=== PATIENT | female | born 2000 | race Two or more races ===

== ENCOUNTER 2024-10-04 07:21 | Emergency (ER) | payer OTHER ==
[~2024-10-04] VITALS: Ht 172.7 cm; Wt 101.6 kg
[2024-10-04 07:44] VITALS: TEMP 97.7
--- NOTE | 2024-10-04 07:47 | ED.PDOC ---
GI ASSESSMENT HPI Comments 24Y F presents to ED for chief complaint abd pain x1.5hrs with nausea, vomiting, and dizziness. Pt described abd pain as burning and is mainly located at epigastric area. Pt denies fever, chills, and diarrhea. Pt took Ibuprofen after abd pain started. Pt has never experienced this type of pain before. LMP last month. Pt denies alcohol, tobacco, and illicit drug use. No known allergies. Chief Complaint: Abdominal Pain Time Seen by MD: 07:28 Reviewed Notes: Medications, Allergies Information Source: Patient Mode of Arrival: Ambulatory Timing: Hours Duration: Since onset Quality: Burning Vomitus: Watery Stool: Brown Severity: Mild Recent: None Recent Hx of: None Pain Location: Epigastric Modifying Factors: Nothing Associated sign and symptoms: Nausea, Vomiting, Abdominal Pain Past Medical History PAST MEDICAL HISTORY: Denies Surgical History: Denies all surgeries CORPORATE SPECIALIST History: Denies all CORPORATE SPECIALIST Hx Family History Family History: Unknown Social History Smoker: Non-Smoker Alcohol: Denies ETOH Use Drugs: Denies Drug Use Lives In: Home Constitutional: denies: chills, diaphoresis, fatigue, fever, malaise, sweats, weakness, others EENTM: denies: blurred vision, double vision, ear bleeding, ear discharge, ear drainage, ear pain, ear ringing, eye pain, eye redness, hearing loss, mouth pain, mouth swelling, nasal discharge, nose bleeding, nose congestion, nose pain, photophobia, tearing, throat pain, throat swelling, voice changes, others Respiratory: denies: cough, hemoptysis, orthopnea, SOB at rest, shortness of breath, SOB with excertion, stridor, wheezing, others Cardiovascular: denies: chest pain, dizzy spells, diaphoresis, Dyspnea on exertion, edema, irregular heart beat, left arm pain, lightheadedness, palpitations, PND, syncope, others Gastrointestinal: reports: abdominal pain, nausea, vomiting; denies: abdomen distended, blood streaked bowels, constipated, diarrhea, dysphagia, difficulty swallowing, hematemesis, melena, poor appetite, poor fluid intake, rectal bleeding, rectal pain, others Genitourinary: denies: abnormal vagina bleeding, burning, dyspareunia, dysuria, flank pain, frequency, hematuria, incontinence, pain, , vagina discharge, urgency, others Neurological: reports: dizziness; denies: fainting, headache, left sided numbness, left sided weakness, numbness, paresthesia, pre-existing deficit, right sided numbness, right sided weakness, seizure, speech problems, tingling, tremors, weakness, others Musculoskeletal: denies: back pain, gout, joint pain, joint swelling, muscle pain, muscle stiffness, neck pain, others Integumetry: denies: bruises, change in color, change in hair/nails, dryness, laceration, lesions, lumps, rash, wounds, others Allergic/Immunocompromised: denies: Difficulty Healing, Frequent Infections, Hives, Itching, others Hematologic/Lymphatic: denies: anemia, blood clots, easy bleeding, easy bruising, swollen glands, others Endocrine: denies: excessive hunger, excessive sweating, excessive thirst, excessive urination, flushing, intolerance to cold, intolerance to heat, unexplained weight gain, unexplained weight loss, others Psychiatric: denies: anxiety, bipolar disorder, depression, hopeless, panic disorder, schizophrenia, sleepless, suicidal, others All Other Systems: Reviewed and Negative Physical Exam General Appearance: Moderate Distress, Normal HEENT: Normal ENT Inspection, Pharynx Normal, TMs Normal Neck: Full Range of Motion, Non-Tender, Normal, Normal Inspection Respiratory: Chest Non-Tender, Lungs Clear, No Accessory Muscle Use, No Respiratory Distress, Normal Breath Sounds Cardiovascular: No Edema, No JVD, No Murmur, No Gallop, Normal Peripheral Pulses, Regular Rate/Rhythm Breast Exam: Deferred Gastrointestinal: Epigastric, Tenderness Genitalia: Deferred Pelvic: Deferred Rectal: Deferred Extremities: No calf tenderness, Normal capillary refill, Normal inspection, Normal range of motion, Non-tender, No pedal edema Musculoskeletal : Apperance: Normal Neurologic: Alert, oven roaster II-XII nml as Tested, No Motor Deficits, Normal Affect, Normal Mood, No Sensory Deficits Cerebellar Function: Normal Reflexes: Normal Skin: Dry, Normal Color, Warm Lymphatic: No Adenopathy Was a procedure done? Was a procedure done?: No GI differential Dx Differential Diagnosis: Cholecystitis, Esophagitis, Gastritis/PUD Other Differential Diagnosis Pancreatitis X-Ray, Labs, Meds, VS Vital Signs Date Time Temp Pulse Resp B/P (MAP) Pulse Ox O2 Delivery O2 Flow Rate FiO2 10/04/24 10:03 86 17 107/71 (83) 98 10/04/24 07:49 16 97 Room Air* 0 21 10/04/24 07:44 97.7 90 18 120/74 (89) 99 97.7 10/04/24 07:44 90 18 99 Room Air 10/04/24 07:40 97.7 90 18 120/74 (89) 99 97.7 10/04/24 07:34 98.2 83 18 117/74 (88) 98 Lab Test 10/04/24 07:33 Range/Units White Blood Count 8.6 4.4-10.8 10^3/uL Red Blood Count 5.53 H 4.0-5.20 10^6/uL Hemoglobin 12.9 12.2-16.2 g/dL Hematocrit 41.0 36.0-46.0 % Mean Corpuscular Volume 74.2 L 80.0-100.0 fL Mean Corpuscular Hemoglobin 23.4 L 28.0-32.0 pg Mean Corpuscular Hemoglobin Concent 31.5 L 32.0-36.0 g/dL Red Cell Distribution Width 15.2 H 11.8-14.3 % Platelet Count 370 140-450 10^3/uL Mean Platelet Volume 7.3 6.9-10.8 fL Neutrophils (%) (Auto) 59.6 37.0-80.0 % Lymphocytes (%) (Auto) 27.8 10.0-50.0 % Monocytes (%) (Auto) 6.6 0.0-12.0 % Eosinophils (%) (Auto) 5.3 0.0-7.0 % Basophils (%) (Auto) 0.7 0.0-2.0 % Neutrophils # (Auto) 5.1 1.6-8.6 10 ^3/uL Lymphocytes # (Auto) 2.4 0.4-5.4 10 ^3/uL Monocytes # (Auto) 0.6 0-1.3 10 ^3/uL Eosinophils # (Auto) 0.5 0-0.8 10 ^3/uL Basophils # (Auto) 0.1 0-0.2 10 ^3/uL Nucleated Red Blood Cells 0.1 % Sodium Level 139 136-145 mmol/L Potassium Level 3.8 3.5-5.1 mmol/L Chloride Level 106 98-107 mmol/L Carbon Dioxide Level 24 20-31 mmol/L Anion Gap 9 5-15 Blood Urea Nitrogen 7 L 9-23 mg/dL Creatinine 0.91 0.550-1.02 mg/dL Glomerular Filtration Rate Calc 89 >90 mL/min BUN/Creatinine Ratio 7.7 L 10.0-20.0 Serum Glucose 110 H 74-106 mg/dL Calcium Level 9.5 8.7-10.4 mg/dL Total Bilirubin 0.3 0.2-1.0 mg/dL Aspartate Amino Transferase (AST) 11 L 13-40 U/L Alanine Aminotransferase (ALT) 23 7-40 U/L Alkaline Phosphatase 88 46-116 U/L Total Protein 7.8 5.7-8.2 g/dL Albumin 4.5 3.2-4.8 g/dL Lipase 40 12-53 U/L Beta HCG, Quantitative 0.5 L 1.5-4.2 mIU/mL Current Medications Medications (Trade) Dose Ordered Sig/Dinora Route Start Time Stop Time Status Last Admin Ondansetron HCl (Zofran Po) 4 mg ONCE ONCE PO 10/04/24 07:45 10/04/24 07:46 DC 10/04/24 07:49 Al Hydrox/Mg Hydrox/Simethicone (Maalox Plus) 30 ml ONCE ONCE PO 10/04/24 07:45 10/04/24 07:46 DC 10/04/24 07:49 [place] [id number] Ph: [phone] DIAGNOSTIC IMAGING Diagnostic Imaging Report : [id number] Signed PATIENT: NAREN CHA ACCT: [id number] UNIT: [id number] : 2000 LOC: ER ROOM / BED: / AGE / SEX: 24 / F ADM STATUS: REG ER SERVICE [id number] ORDERING PHYSICIAN: BASILIO ROBLES MD PROCEDURE(s): GBUS - GALLBLADDER REASON: ro bruce ORDER NUMBER(s): [id number], ACCESSION NUMBER(s): [id number] Procedure: US GALLBLADDER 10/04/2024 08:44 AM Indication: ro bruce. Comparison: None Technique: Grayscale and color images of the right upper quadrant were obtained. FINDINGS: ASCITES: None. LIVER: Liver measures 16 cm craniocaudal. Liver parenchyma is diffusely echogenic. No focal lesion is identified. No intrahepatic ductal dilatation. Normal directional flow is seen in the portal vein. GALLBLADDER: Few subcentimeter gallstones noted. No gallbladder wall edema or pericholecystic fluid. Sonographic Lora's sign is negative. COMMON BILE DUCT: 0.4 cm in caliber, within normal limits. PANCREAS: Visualized portions are unremarkable. RIGHT KIDNEY: Normal in size , 10.6 cm in length without hydronephrosis. No focal lesions identified. AORTA, IVC: Visualized portions are unremarkable. OTHER: None. IMPRESSION: 1. Cholelithiasis with no evidence of cholecystitis. 2. Hepatic steatosis. ATED BY: LORETA GARDUNO MD DICTATED DATE/TIME: 10/04/24 1005 SIGNED BY: LORETA GARDUNO MD SIGNED DATE/TIME: 10/04/24 1005 CC: Time of 1ST Reevaluation: 07:58 Reevaluation 1ST: Unchanged Time of 2ND Reevaluation: 08:50 (Pt states pain has resolved.) Reevaluation 2ND: Improved Patient Education/Counseling: Diagnosis, Treatment Family Education/Counseling: No Family Present Departure 1 Departure Time of Disposition: 10:12 Impression: Primary Impression: Cholelithiasis Qualified Codes: K80.20 - Calculus of gallbladder without cholecystitis without obstruction Additional Impression: Gastritis Qualified Codes: K29.00 - Acute gastritis without bleeding Disposition: HOME / SELF CARE / HOMELESS Condition: Stable Additional Instructions: Follow up with the primary care physician to obtain an outpatient surgery referral for elective removal of your gallbladder. I have prescribed nausea medicine. Additionally stay away from greasy foods as that will make your pain worse. Return to the ER if symptoms worsen or persist. e-Prescriptions Ibuprofen (Ibuprofen) 600 Mg Tab 1 TAB PO TID PRN, #30 TAB Prov: BASILIO ROBLES MD 10/04/24 Ondansetron Odt 4MG Tab (ZOFRAN PO) 4 Mg Tb 4 MG PO Q6HPRN PRN, #10 TAB ODT TAB-DISSOLVE IN MOUTH, THEN SWALLOW Prov: BASILIO ROBLES MD 10/04/24 Discharged With: Self Comments PATIENT: NAREN CHA ACCT: [id number] UNIT: [id number] : 2000 LOC: ER ROOM / BED: / AGE / SEX: 24 / F ADM STATUS: REG ER SERVICE [id number] ORDERING PHYSICIAN: BASILIO ROBLES MD PROCEDURE(s): GBUS - GALLBLADDER REASON: ro bruce ORDER NUMBER(s): [id number], ACCESSION NUMBER(s): [id number] Procedure: US GALLBLADDER 10/04/2024 08:44 AM Indication: ro bruce. Comparison: None Technique: Grayscale and color images of the right upper quadrant were obtained. FINDINGS: ASCITES: None. LIVER: Liver measures 16 cm craniocaudal. Liver parenchyma is diffusely echogenic. No focal lesion is identified. No intrahepatic ductal dilatation. Normal directional flow is seen in the portal vein. GALLBLADDER: Few subcentimeter gallstones noted. No gallbladder wall edema or pericholecystic fluid. Sonographic Lora's sign is negative. COMMON BILE DUCT: 0.4 cm in caliber, within normal limits. PANCREAS: Visualized portions are unremarkable. RIGHT KIDNEY: Normal in size , 10.6 cm in length without hydronephrosis. No focal lesions identified. AORTA, IVC: Visualized portions are unremarkable. OTHER: None. IMPRESSION: 1. Cholelithiasis with no evidence of cholecystitis. 2. Hepatic steatosis. Critical Care Note Critical Care Time?: No Stability Stability form required: No Heart Score Heart Score: Heart Score Response (Comments) Value History N/A 0 EKG N/A 0 Age N/A 0 Risk Factors N/A 0 Troponin N/A 0 Total 0 I personally scribed for BASILIO ROBLES MD ([email or web address]) on 10/04/24 at 07:47. Electronically submitted by Shira Cheney ([email or web address]). I personally scribed for BASILIO ROBLES MD ([email or web address]) on 10/04/24 at 09:35. Electronically submitted by Shira Cheney ([email or web address]). I personally scribed for BASILIO ROBLES MD ([email or web address]) on 10/04/24 at 10:13. Electronically submitted by Shira Cheney ([email or web address]). BASILIO ROBLES MD Oct 04, 2024 07:47
[2024-10-04 07:49] VITALS: RESP 16; O2SAT 97
[2024-10-04] MEDS: ONDANSETRON ODT 4 MG TAB PO ONE (07:49)
[2024-10-04] MEDS: MAALOX PLUS or MAALOX 30 ML PO ONE (07:49)
[2024-10-04 08:00] LABS: Basophils # (auto) 0.1 10 ^3/uL (0-0.2); Basophils % (auto) 0.7 % (0.0-2.0); Eosinophils # (auto) 0.5 10 ^3/uL (0-0.8); Eosinophils % (auto) 5.3 % (0.0-7.0); Hemoglobin 12.9 g/dL (12.2-16.2); Lymphocytes # (auto) 2.4 10 ^3/uL (0.4-5.4); Lymphocytes % (auto) 27.8 % (10.0-50.0); Mean Corpuscular Hemoglobin 23.4 pg (28.0-32.0); Mean Corpuscular Hgb Conc. 31.5 g/dL (32.0-36.0); Mean Corpuscular Volume 74.2 fL (80.0-100.0); Monocytes # (auto) 0.6 10 ^3/uL (0-1.3); Monocytes % (auto) 6.6 % (0.0-12.0); Neutrophils # (auto) 5.1 10 ^3/uL (1.6-8.6); Neutrophils % (auto) 59.6 % (37.0-80.0); Nucleated Red Blood Cells % 0.1 %; Platelet Count (auto) 370 10^3/uL (140-450); Red Blood Cells 5.53 10^6/uL (4.0-5.20); Red Cell Distribution Width 15.2 % (11.8-14.3); White Blood Cell 8.6 10^3/uL (4.4-10.8)
[2024-10-04 08:18] LABS: Alanine Aminotransferase 23 U/L (7-40); Albumin 4.5 g/dL (3.2-4.8); Alkaline Phosphatase 88 U/L (46-116); Anion Gap 9 (5-15); Aspartate Aminotransferase 11 U/L (13-40); BUN/Creatinine Ratio 7.7 (10.0-20.0); Bilirubin, Total 0.3 mg/dL (0.2-1.0); Blood Urea Nitrogen 7 mg/dL (9-23); Calcium 9.5 mg/dL (8.7-10.4); Carbon Dioxide 24 mmol/L (20-31); Chloride 106 mmol/L (98-107); Glucose 110 mg/dL (74-106); Potassium 3.8 mmol/L (3.5-5.1); Sodium 139 mmol/L (136-145); Total Protein 7.8 g/dL (5.7-8.2)
[2024-10-04 08:57] LABS: Lipase 40 U/L (12-53)
[2024-10-04 10:03] VITALS: BP 107/71; PULSE 86; RESP 17; O2SAT 98
--- NOTE | 2024-10-04 10:07 | DVH ---
Procedure: US GALLBLADDER 10/04/2024 08:44 AM Indication: ro bruce. Comparison: None Technique: Grayscale and color images of the right upper quadrant were obtained. FINDINGS: ASCITES: None. LIVER: Liver measures 16 cm craniocaudal. Liver parenchyma is diffusely echogenic. No focal lesion is identified. No intrahepatic ductal dilatation. Normal directional flow is seen in the portal vein. GALLBLADDER: Few subcentimeter gallstones noted. No gallbladder wall edema or pericholecystic fluid. Sonographic Lora's sign is negative. COMMON BILE DUCT: 0.4 cm in caliber, within normal limits. PANCREAS: Visualized portions are unremarkable. RIGHT KIDNEY: Normal in size , 10.6 cm in length without hydronephrosis. No focal lesions identified. AORTA, IVC: Visualized portions are unremarkable. OTHER: None. IMPRESSION: 1. Cholelithiasis with no evidence of cholecystitis. 2. Hepatic steatosis.
[2024-10-04] MEDS ORDERED: ZOFR4T PO (10:17)
[2024-10-04] MEDS ORDERED: IBUP-1454 PO (10:17)
== END 2024-10-04 10:36 | disposition home or self-care (01) ==
LOC: ER 07:21
DX: K29.00 Acute gastritis without bleeding (principal); R10.2 Pelvic and perineal pain; K80.20 Calculus of gallbladder without cholecystitis without obstruction
CPT/HCPCS: 36415; 76705; 80053; 83690; 84702; 85025; 99284; Q0162

== ENCOUNTER 2025-11-07 17:56 | Inpatient (IN) | payer MEDICAID, OTHER ==
[~2025-11-07] VITALS: Ht 172.7 cm; Wt 102.5 kg
[~2025-11-07 17:56] MED LIST: IBUP-1454 PO; ZOFR4T PO
[2025-11-07 19:30] VITALS: PULSE 87; RESP 19; O2SAT 98
--- NOTE | 2025-11-07 19:48 | DVH ---
CLINICAL INDICATION: injury low back pain TECHNIQUE: 3 radiographic views of the lumbar spine were obtained. COMPARISON: N3one FINDINGS/IMPRESSION: Levoscoliosis of the lumbar spine is noted. This may be positional there are no prior studies for comparison. There are no compressed vertebra. No spondylolisthesis. There is straightening of the normal lumbar lordotic curve.
--- NOTE | 2025-11-07 20:02 | ED.PDOC ---
Back pain HPI HPI Comments 25 y.o female presents to the ED for a chief complaint of lower back pain s/p lifting heavy object at work today. Patient reports pain worsens with ambulation and is described as sharp. She denies any numbness, tingling sensation, nausea, vomiting or fall injuries. Chief Complaint: Back Pain Time Seen by MD: 20:01 Reviewed Notes: Nurses Notes, Medications, Allergies Allergies: Coded Allergies: NO KNOWN ALLERGIES (Unverified , 11/07/25) Home Meds Active Scripts Ibuprofen (Ibuprofen) 600 Mg Tab, 1 TAB PO TID PRN, #30 TAB Prov:BASILIO ROBLES MD 10/04/24 Ondansetron Odt 4MG Tab (ZOFRAN PO) 4 Mg Tb, 4 MG PO Q6HPRN PRN, #10 TAB ODT TAB-DISSOLVE IN MOUTH, THEN SWALLOW Prov:BASILIO ROBLES MD 10/04/24 Mode of Arrival: Ambulatory Past Medical History PAST MEDICAL HISTORY: Denies Surgical History: Denies all surgeries GREASE REMOVER History: Denies all GREASE REMOVER Hx Family History Family History: Unknown Social History Smoker: Non-Smoker Alcohol: Denies ETOH Use Drugs: Denies Drug Use Lives In: Home Constitutional: denies: chills, diaphoresis, fatigue, fever, malaise, sweats, w eakness, others EENTM: denies: blurred vision, double vision, ear bleeding, ear discharge, ear drainage, ear pain, ear ringing, eye pain, eye redness, hearing loss, mouth pain, mouth swelling, nasal discharge, nose bleeding, nose congestion, nose pain, photophobia, tearing, throat pain, throat swelling, voice changes, others Respiratory: denies: cough, hemoptysis, orthopnea, SOB at rest, shortness of breath, SOB with excertion, stridor, wheezing, others Cardiovascular: denies: chest pain, dizzy spells, diaphoresis, Dyspnea on exertion, edema, irregular heart beat, left arm pain, lightheadedness, palpitations, PND, syncope, others Gastrointestinal: denies: abdomen distended, abdominal pain, blood streaked bowels, constipated, diarrhea, dysphagia, difficulty swallowing, hematemesis, melena, nausea, poor appetite, poor fluid intake, rectal bleeding, rectal pain, vomiting, others Genitourinary: denies: abnormal vagina bleeding, burning, dyspareunia, dysuria, flank pain, frequency, hematuria, incontinence, pain, , vagina di scharge, urgency, others Neurological: denies: dizziness, fainting, headache, left sided numbness, left sided weakness, numbness, paresthesia, pre-existing deficit, right sided numbness, right sided weakness, seizure, speech problems, tingling, tremors, weakness, others Musculoskeletal: reports: back pain; denies: gout, joint pain, joint swelling, muscle pain, muscle stiffness, neck pain, others Integumetry: denies: bruises, change in color, change in hair/nails, dryness, laceration, lesions, lumps, rash, wounds, others Allergic/Immunocompromised: denies: Difficulty Healing, Frequent Infections, Hives, Itching, others Hematologic/Lymphatic: denies: anemia, blood clots, easy bleeding, easy bruising, swollen glands, others Endocrine: denies: excessive hunger, excessive sweating, excessive thirst, excessive urination, flushing, intolerance to cold, intolerance to heat, unexplained weight gain, unexplained weight loss, others Psychiatric: denies: anxiety, bipolar disorder, depression, hopeless, panic disorder, schizophrenia, sleepless, suicidal, others All Other Systems: Reviewed and Negative Physical Exam General Appearance: No Apparent Distress, Normal HEENT: Pharynx Normal Neck: Full Range of Motion, Non-Tender Respiratory: Lungs Clear, No Respiratory Distress, Normal Breath Sounds Cardiovascular: No Edema, No JVD, No Murmur, No Gallop, Normal Peripheral Pulses, Regular Rate/Rhythm Breast Exam: Deferred Gastrointestinal: No Organomegaly, Non Tender, No Pulsatile Mass, Normal Bowel Sounds, Soft Genitalia: Deferred Pelvic: Deferred Rectal: Deferred Extremities: Normal capillary refill, Normal range of motion, Non-tender, No pedal edema Musculoskeletal : Location: Bilateral (Moderate tenderness palpated over lower back musculature and L1-2 l spine. No noted crepitus or step-offs along cervical thoracic and lumbar spine. Strength sensory and motion intact. Negative straight leg raise bilateral. Positive pedal pulses) Apperance: Normal Neurologic: Alert, No Motor Deficits, Normal Affect, Normal Mood, No Sensory Deficits Cerebellar Function: Normal Reflexes: NOT DONE Skin: Dry, Normal Color, Warm Lymphatic: No Adenopathy Was a procedure done? Was a procedure done?: No Back Pain Differential Dx Differential Diagnosis: DJD, Fracture, Musculoskeletal Pain, Strain X-Ray, Labs, Meds, VS Vital Signs Date Time Temp Pulse Resp B/P (MAP) Pulse Ox O2 Delivery O2 Flow Rate FiO2 11/07/25 22:00 70 19 87/46 (60) 94 11/07/25 21:00 84 19 120/80 (93) 98 11/07/25 20:00 89 19 110/68 (82) 98 11/07/25 19:30 87 19 98 Room Air* 0 21 11/07/25 19:30 97.9 87 19 114/43 (66) 98 97.9 11/07/25 18:05 98.7 120 18 111/81 98 98.7 Lab Test 11/07/25 23:09 Range/Units White Blood Count 5.7 4.4-10.8 10^3/uL Red Blood Count 5.14 4.0-5.20 10^6/uL Hemoglobin 11.6 L 12.2-16.2 g/dL Hematocrit 36.6 36.0-46.0 % Mean Corpuscular Volume 71.2 L 80.0-100.0 fL Mean Corpuscular Hemoglobin 22.6 L 28.0-32.0 pg Mean Corpuscular Hemoglobin Concent 31.8 L 32.0-36.0 g/dL Red Cell Distribution Width 15.5 H 11.8-14.3 % Platelet Count 395 140-450 10^3/uL Mean Platelet Volume 7.5 6.9-10.8 fL Neutrophils (%) (Auto) 82.6 H 37.0-80.0 % Lymphocytes (%) (Auto) 14.4 10.0-50.0 % Monocytes (%) (Auto) 1.6 0.0-12.0 % Eosinophils (%) (Auto) 0.8 0.0-7.0 % Basophils (%) (Auto) 0.6 0.0-2.0 % Neutrophils # (Auto) 4.7 1.6-8.6 10 ^3/uL Lymphocytes # (Auto) 0.8 0.4-5.4 10 ^3/uL Monocytes # (Auto) 0.1 0-1.3 10 ^3/uL Eosinophils # (Auto) 0 0-0.8 10 ^3/uL Basophils # (Auto) 0 0-0.2 10 ^3/uL Nucleated Red Blood Cells 0.0 % Sodium Level 141 136-145 mmol/L Potassium Level 3.9 3.5-5.1 mmol/L Chloride Level 106 98-107 mmol/L Carbon Dioxide Level 26 20-31 mmol/L Anion Gap 9 5-15 Blood Urea Nitrogen 8 L 9-23 mg/dL Creatinine 0.63 0.550-1.02 mg/dL Glomerular Filtration Rate Calc 125 >90 mL/min BUN/Creatinine Ratio 12.7 10.0-20.0 Serum Glucose 110 H 74-106 mg/dL Calcium Level 8.9 8.7-10.4 mg/dL Total Bilirubin 0.3 0.2-1.0 mg/dL Aspartate Amino Transferase (AST) 26 13-40 U/L Alanine Aminotransferase (ALT) 32 7-40 U/L Alkaline Phosphatase 82 46-116 U/L Total Protein 7.4 5.7-8.2 g/dL Albumin 4.3 3.2-4.8 g/dL Current Medications Medications (Trade) Dose Ordered Sig/Dinora Route Start Time Stop Time Status Last Admin Ketorolac Tromethamine (Toradol Injection) 60 mg ONCE ONCE IM 11/07/25 20:00 11/07/25 20:01 DC 11/07/25 20:05 Dexamethasone Sodium Phosphate (Decadron Injection) 10 mg ONCE ONCE IM 11/07/25 20:00 11/07/25 20:01 DC 11/07/25 20:03 Acetaminophen/ Hydrocodone Bitart (Liberty 5/325MG Tab) 1 tab ONCE ONCE PO 11/07/25 20:00 11/07/25 20:01 DC 11/07/25 20:04 Sodium Chloride 2,000 ml @ 1,000 mls/hr Q2H ONCE IV 11/07/25 22:30 11/08/25 00:29 DC 11/07/25 23:05 X-Ray, Labs, Meds, VS Comment FINDINGS: ANATOMY: Five lumbar-type vertebral bodies are present. The most inferior well- formed disc space will be referred to as L5-S1 for purposes of numbering in this report. ALIGNMENT: Mild levoconvex curvature of the lumbar spine with degenerative- related mild retrolisthesis of L5 on S1. No traumatic malalignment. VERTEBRAE: The vertebral bodies are normal in height and alignment. Posterior elements are intact. DEGENERATIVE CHANGES/SPINAL CANAL/NEUROFORAMEN: No significant degenerative changes. No significant spinal canal stenosis or neuroforaminal narrowing. INTERVERTEBRAL DISCS: No significant posterior osteophyte complex. FACETS: No significant facet arthropathy. OTHER: None. (Patient presented with SEVERE LOW BACK PAIN /was concerning for possible FX, acute subluxation. I ordered and reviewed the result of at least 4 labs including a CBC, CMP, UA *PENDING* I independently interpreted the following tests: Lumbar spine x-ray shows no acute fractures subluxations or osseous lesions. *PENDING CT LS no acute fractures subluxations or osseous lesions Patient unable to ambulate or bear weight without pain and dizzy This patient has a high risk of morbidity due to further diagnostic testing or treatment. Workup reveals intractable low back pain and patient should be admitted for further workup, pain management, expert consultation, and lumbar spine MRI Images Reviewed?: Images reviewed and evaluated by me Time of 1ST Reevaluation: 20:30 Reevaluation 1ST: Unchanged Time of 2ND Reevaluation: 23:07 Reevaluation 2ND: Unchanged Patient Education/Counseling: Diagnosis, Treatment, Prognosis Family Education/Counseling: No Family Present SEPSIS Sepsis Screen Date sepsis recognized/suspect: Nov 07, 2025 Time Sepsis recognized/suspect: 1806 Recent Procedure: No On Antibiotic Therapy: No Respiratory Rate >20: No Heart Rate >90: No Temp<36 C (96.8 F) or >38.3 C: No SBP <90 or MAP <65 mmHG: No New Acute Mental Status Change: No Is the patient on CPAP, BIPAP,: No Physician Orders Lumbar Spine 3 View (11/07/25 18:15) Ls Spine Wo Contrast (11/07/25 23:01) Urinalysis (11/07/25 23:02) Vital Signs Date Time Temp Pulse Resp B/P (MAP) Pulse Ox O2 Delivery O2 Flow Rate FiO2 11/07/25 22:00 70 19 87/46 (60) 94 11/07/25 21:00 84 19 120/80 (93) 98 11/07/25 20:00 89 19 110/68 (82) 98 11/07/25 19:30 87 19 98 Room Air* 0 21 11/07/25 19:30 97.9 87 19 114/43 (66) 98 97.9 11/07/25 18:05 98.7 120 18 111/81 98 98.7 Laboratory Tests Test 11/07/25 23:09 White Blood Count 5.7 10^3/uL (4.4-10.8) Medications Medications Dose Ordered Sig/Dinora Route Start Time Stop Time Status Last Admin Dose Admin Acetaminophen/ Hydrocodone Bitart 1 tab ONCE ONCE PO 11/07/25 20:00 11/07/25 20:01 DC 11/07/25 20:04 Dexamethasone Sodium Phosphate 10 mg ONCE ONCE IM 11/07/25 20:00 11/07/25 20:01 DC 11/07/25 20:03 Ketorolac Tromethamine 60 mg ONCE ONCE IM 11/07/25 20:00 11/07/25 20:01 DC 11/07/25 20:05 Sodium Chloride 2,000 ml @ 1,000 mls/hr Q2H ONCE IV 11/07/25 22:30 11/08/25 00:29 DC 11/07/25 23:05 Departure 1 Departure Time of Disposition: 23:00 Impression: Primary Impression: Lumbar sprain Qualified Codes: S33.5XXA - Sprain of ligaments of lumbar spine, initial encounter Additional Impression: Intractable low back pain Disposition: ADMITTED INPATIENT Condition: Guarded Discharged With: Self Critical Care Note Critical Care Time?: No Stability Stability form required: No I personally scribed for ER ([email or web address]) on 11/07/25 at 20:02. Electronically submitted by Ericka Dominguez ([facility]). ER Nov 07, 2025 20:02 PRIMITIVO JIMENEZ TICKET CLERK Nov 07, 2025 23:00
[2025-11-07] MEDS: HYDROcodone-ACET 5/325MG TAB PO ONE (20:04)
[2025-11-07] MEDS: KETOROLAC TROMETH 60MG/2ML VIAL IM ONE (20:05)
[2025-11-07] MEDS: SODIUM CHLORIDE 0.9% 2,000 ML IV ONE (23:05)
[2025-11-07 23:19] LABS: Hemoglobin 11.6 g/dL (12.2-16.2)
[2025-11-07 23:21] LABS: Hematocrit 36.6 % (36.0-46.0); Mean Corpuscular Hemoglobin 22.6 pg (28.0-32.0); Mean Corpuscular Volume 71.2 fL (80.0-100.0); Nucleated Red Blood Cells % 0.0 %
[2025-11-07 23:35] LABS: Alanine Aminotransferase 32 U/L (7-40); Albumin 4.3 g/dL (3.2-4.8); Alkaline Phosphatase 82 U/L (46-116); Anion Gap 9 (5-15); BUN/Creatinine Ratio 12.7 (10.0-20.0); Bilirubin, Total 0.3 mg/dL (0.2-1.0); Calcium 8.9 mg/dL (8.7-10.4); Carbon Dioxide 26 mmol/L (20-31); Chloride 106 mmol/L (98-107); Potassium 3.9 mmol/L (3.5-5.1); Sodium 141 mmol/L (136-145); Total Protein 7.4 g/dL (5.7-8.2)
[2025-11-07 23:36] LABS: Blood Urea Nitrogen 8 mg/dL (9-23); Glucose 110 mg/dL (74-106)
--- NOTE | 2025-11-07 23:53 | DVHHPRES ---
History of Present Illness Resident Creating Document: CAITIE SIM RESIDENT History of Present Illness NAREN CHA, A 25-year-old female with no significant past medical history presented to the ED ambulatory with sharp lower back pain after lifting a heavy object at work today, worsened by ambulation and without associated neurological symptoms or gastrointestinal complaints. PMHx: none PSHx: denies FamilyHx: noncontributory SocialHx: lives at home, with family denies alcohol, recreational drug or smoking. OBGYN Hx: heavy menstruation history Home Meds: none Review of Systems Constitutional: No: Fever, Chills, Sweats, Weakness, Malaise, Other Eyes: No: Pain, Vision change, Conjunctivae inflammation, Eyelid inflammation, Other, Redness ENT: No: Ear pain, Ear discharge, Nose pain, Nose discharge, Nose congestion, Mouth pain, Mouth swelling, Throat pain, Throat swelling, Other Respiratory: No: Cough, Dry, Shortness of breath, SOB with excertion, Wheezing, Hemoptysis, Pleuritic Pain, Sputum, Wheezing, Other Cardiovascular: No: Chest Pain, Palpitations, Orthopnea, Paroxysmal Noc. D yspnea, Edema, Lt Headedness, Other Gastrointestinal: No: Nausea, Vomiting, Abdominal Pain, Diarrhea, Constipation, Melena, Hematochezia, Other Genitourinary: No Dysuria, No Frequency, No Incontinence, No Hematuria, No Retention, No Other Musculoskeletal: back pain; No: other, neck pain, shoulder pain, arm pain, hand pain, leg pain, foot pain Skin: No: Rash, Lesions, Jaundice, Bruising, Other Neurological: No: Weakness, Numbness, Incoordination, Change in speech, Confusion, Seizures, Other Allergies: Coded Allergies: NO KNOWN ALLERGIES (Unverified , 11/07/25) Exam Vital Signs Vital Signs Date Time Temp Pulse Resp B/P (MAP) Pulse Ox O2 Delivery O2 Flow Rate FiO2 11/07/25 22:00 70 19 87/46 (60) 94 11/07/25 19:30 Room Air* 0 21 11/07/25 19:30 97.9 97.9 General Appearance: Alert, Oriented X3, Cooperative, mild distress HEENT: Atraumatic, PERRLA, EOMI, Mucous membr. moist/pink Respiratory: Clear to auscultation, Normal air movement Cardiovascular: Regular rate, Normal S1, Normal S2, No murmurs Abdominal: Normal bowel sounds, Soft, No tenderness, No hepatospenomegaly Extremities: No clubbing, No cyanosis, No edema, Normal pulses, Other (midline lumbar tenderness reproducible L3-L4 area and bilateral surrounding paraspinal area, no neurovascular lesion distally. no visible scar or deformity noted, straight leg raise test -ve. ) Skin: No rashes, No breakdown, No significant lesion Neuro: Normal speech, Strength at 5/5 X4 ext, Normal tone, Sensation intact, Cranial nerves 3-12 NL, Reflexes 2+, Other (due to pain deferred gait testing) Psych/Mental Status: Mental status NL, Mood NL Labs/Xrays Labs Test 11/07/25 23:09 Range/Units White Blood Count 5.7 4.4-10.8 10^3/uL Red Blood Count 5.14 4.0-5.20 10^6/uL Hemoglobin 11.6 L 12.2-16.2 g/dL Hematocrit 36.6 36.0-46.0 % Mean Corpuscular Volume 71.2 L 80.0-100.0 fL Mean Corpuscular Hemoglobin 22.6 L 28.0-32.0 pg Mean Corpuscular Hemoglobin Concent 31.8 L 32.0-36.0 g/dL Red Cell Distribution Width 15.5 H 11.8-14.3 % Platelet Count 395 140-450 10^3/uL Mean Platelet Volume 7.5 6.9-10.8 fL Neutrophils (%) (Auto) 82.6 H 37.0-80.0 % Lymphocytes (%) (Auto) 14.4 10.0-50.0 % Monocytes (%) (Auto) 1.6 0.0-12.0 % Eosinophils (%) (Auto) 0.8 0.0-7.0 % Basophils (%) (Auto) 0.6 0.0-2.0 % Neutrophils # (Auto) 4.7 1.6-8.6 10 ^3/uL Lymphocytes # (Auto) 0.8 0.4-5.4 10 ^3/uL Monocytes # (Auto) 0.1 0-1.3 10 ^3/uL Eosinophils # (Auto) 0 0-0.8 10 ^3/uL Basophils # (Auto) 0 0-0.2 10 ^3/uL Nucleated Red Blood Cells 0.0 % Sodium Level 141 136-145 mmol/L Potassium Level 3.9 3.5-5.1 mmol/L Chloride Level 106 98-107 mmol/L Carbon Dioxide Level 26 20-31 mmol/L Anion Gap 9 5-15 Blood Urea Nitrogen 8 L 9-23 mg/dL Creatinine 0.63 0.550-1.02 mg/dL Glomerular Filtration Rate Calc 125 >90 mL/min BUN/Creatinine Ratio 12.7 10.0-20.0 Serum Glucose 110 H 74-106 mg/dL Calcium Level 8.9 8.7-10.4 mg/dL Total Bilirubin 0.3 0.2-1.0 mg/dL Aspartate Amino Transferase (AST) 26 13-40 U/L Alanine Aminotransferase (ALT) 32 7-40 U/L Alkaline Phosphatase 82 46-116 U/L Total Protein 7.4 5.7-8.2 g/dL Albumin 4.3 3.2-4.8 g/dL SEPSIS Sepsis Screen Date sepsis recognized/suspect: Nov 07, 2025 Time Sepsis recognized/suspect: 1999 Recent Procedure: No On Antibiotic Therapy: No Respiratory Rate >20: No Heart Rate >90: No Temp<36 C (96.8 F) or >38.3 C: No SBP <90 or MAP <65 mmHG: No New Acute Mental Status Change: No Is the patient on CPAP, BIPAP,: No Physician Orders Lumbar Spine 3 View (11/07/25 18:15) Sodium Chloride 0.9% (11/07/25 22:30) Ls Spine Wo Contrast (11/07/25 23:01) Urinalysis (11/07/25 23:02) Vital Signs Date Time Temp Pulse Resp B/P (MAP) Pulse Ox O2 Delivery O2 Flow Rate FiO2 11/07/25 22:00 70 19 87/46 (60) 94 11/07/25 21:00 84 19 120/80 (93) 98 11/07/25 20:00 89 19 110/68 (82) 98 11/07/25 19:30 87 19 98 Room Air* 0 21 11/07/25 19:30 97.9 87 19 114/43 (66) 98 97.9 11/07/25 18:05 98.7 120 18 111/81 98 98.7 Laboratory Tests Test 11/07/25 23:09 White Blood Count 5.7 10^3/uL (4.4-10.8) Medications Medications Dose Ordered Sig/Dinora Route Start Time Stop Time Status Last Admin Dose Admin Acetaminophen/ Hydrocodone Bitart 1 tab ONCE ONCE PO 11/07/25 20:00 11/07/25 20:01 DC 11/07/25 20:04 1 TAB Dexamethasone Sodium Phosphate 10 mg ONCE ONCE IM 11/07/25 20:00 11/07/25 20:01 DC 11/07/25 20:03 10 MG Ketorolac Tromethamine 60 mg ONCE ONCE IM 11/07/25 20:00 11/07/25 20:01 DC 11/07/25 20:05 60 MG Sodium Chloride 2,000 ml @ 1,000 mls/hr Q2H ONCE IV 11/07/25 22:30 11/08/25 00:29 11/07/25 23:05 1,000 MLS/HR Assessment/Plan Assessment/Plan #acute low back pain: Sudden onset 10 x 10 after heavy lifting, X-ray lumbar spine three views shows Levoscoliosis, CT lumbar spine pending, ruled out spinal shock, spinal foraminal stenosis, physical therapy, posture and avoidance of weight Lifting for now. Check for vitamin-D calcium. #microcytic anemia: 11.6, no known baseline, denies any active bleeding MCV 70 1.2, with elevated RDW of 15.5 likely iron-deficiency anemia, iron panel, GI blood loss to ruled out, likely due to menstrual blood loss /poor iron intake. #Obesity grade 1: BMI 33.2, weight loss and exercise with lifestyle modification counseling done. PUD prophylaxis: protonix 40mg Mg daily oral to continue DVT prophylaxis: SCD/brisk movement. Barriers to discharge: Medical diagnosis and management in progress. Patient l ana m with family. Independent for ADL. PT consulted and SW consult as needed. PCP: none, discharge Clinic follow up, with establish care with PCP with wound care rn consult. Specialist Relevant To Admission: none Case discussed with Dr. Willis. Code Status: Full Code. Discussion for goals of care and plan of care needed total 31 minutes bedside. patient admitted to the [facility]. Plan discussed with: Patient Date of Service: Nov 07, 2025 Billing Provider: JESUS MANUEL WILLIS MD Common Visit Codes: [id number] INP/OBS CARE (HIGH) Secondary Visit Codes: [id number] CARE PLAN 30 MINUTES CAITIE SIM RESIDENT Nov 07, 2025 23:53
[2025-11-08] VITALS (8 sets, daily range): BP systolic 97–111; BP diastolic 63–77; PULSE 78–103; RESP 16–19; TEMP 97.3–98.3; O2SAT 94–97
[2025-11-08] MEDS ORDERED: DOCUSATE SOD 100 MG CAP PO PRN
[2025-11-08] MEDS ORDERED: NITROGLYCERIN 0.4 MG SL TAB SL PRN
[2025-11-08] MEDS: SODIUM CHLORIDE 0.9% 1,000 ML IV SCH
[2025-11-08] MEDS ORDERED: ONDANSETRON HCL 4 MG/2 ML VIAL IV PRN
[2025-11-08] MEDS ORDERED: MORPHINE SULFATE INJ 2 MG/ml SYRG IV PRN ×2
--- NOTE | 2025-11-08 00:25 | DVH ---
EXAM: CT LS SPINE WO CONTRAST INDICATION: Low back pain injury. TECHNIQUE:: Axial images of the lumbar spine have been obtained along with coronal and sagittal reformatted images. CT scans at this facility use dose modulation, iterative reconstruction, and/or weight based dosing when appropriate to reduce radiation dose to as low as reasonably achievable. CTDIvol: 38.4 mGy; DLP: 1554.1 mGy-cm. COMPARISON: XY LUMBAR SPINE 3 VIEW on DOS: 11/07/25. FINDINGS: ANATOMY: Five lumbar-type vertebral bodies are present. The most inferior well- formed disc space will be referred to as L5-S1 for purposes of numbering in this report. ALIGNMENT: Mild levoconvex curvature of the lumbar spine with degenerative- related mild retrolisthesis of L5 on S1. No traumatic malalignment. VERTEBRAE: The vertebral bodies are normal in height and alignment. Posterior elements are intact. DEGENERATIVE CHANGES/SPINAL CANAL/NEUROFORAMEN: No significant degenerative changes. No significant spinal canal stenosis or neuroforaminal narrowing. INTERVERTEBRAL DISCS: No significant posterior osteophyte complex. FACETS: No significant facet arthropathy. OTHER: None. IMPRESSION: No acute fracture or traumatic malalignment of the lumbar spine.
[2025-11-08] MEDS ORDERED: LIDOCAINE 5% TOPICAL PATCH TOP ONE (00:45)
[2025-11-08 01:14] LABS: INR 1.11 (0.9-1.15); Prothrombin Time 11.6 sec (9.3-11.8)
[2025-11-08 01:16] LABS: Iron 21.0 ug/dL (50-170); Total Iron Binding Capacity 330.0 ug/dL (250-425)
[2025-11-08] MEDS: LIDOCAINE 5% TOPICAL PATCH TOP SCH (01:24)
[2025-11-08] MEDS ORDERED: IBUP200T76 PO (01:51)
[2025-11-08] MEDS: CYCLOBENZAPRINE HCL 10 MG TAB PO ONE (02:33)
[2025-11-08] MEDS: MORPHINE SULFATE 4 MG/ML SYR/VIAL IV PRN (02:34)
[2025-11-08] MEDS ORDERED: CYCLOBENZAPRINE HCL 10 MG TAB PO PRN (06:00)
[2025-11-08 06:32] LABS: Hematocrit 35.0 % (36.0-46.0); Hemoglobin 11.4 g/dL (12.2-16.2); Mean Corpuscular Hemoglobin 23.1 pg (28.0-32.0); Mean Corpuscular Volume 71.0 fL (80.0-100.0); Nucleated Red Blood Cells % 0.0 %
[2025-11-08 06:50] LABS: Alanine Aminotransferase 28 U/L (7-40); Albumin 4.1 g/dL (3.2-4.8); Alkaline Phosphatase 80 U/L (46-116); Anion Gap 10 (5-15); BUN/Creatinine Ratio 9.9 (10.0-20.0); Bilirubin, Total 0.3 mg/dL (0.2-1.0); Blood Urea Nitrogen 8 mg/dL (9-23); Calcium 9.0 mg/dL (8.7-10.4); Carbon Dioxide 25 mmol/L (20-31); Chloride 107 mmol/L (98-107); Glucose 196 mg/dL (74-106); Potassium 4.0 mmol/L (3.5-5.1); Sodium 142 mmol/L (136-145); Total Protein 7.1 g/dL (5.7-8.2)
[2025-11-08] MEDS: HYDROcodone-ACET 5/325MG TAB PO PRN (10:10)
[2025-11-08 10:51] LABS: Amphetamine Screen, Urine Neg (NEGATIVE)
[2025-11-08 10:53] LABS: Opiate Scree,Urine Pos (NEGATIVE)
[2025-11-08 10:56] LABS: Barbiturate Scree,Urine Neg (NEGATIVE); Benzodiazephine Screen, Urine Neg (NEGATIVE); Cannabinoid Screen, Urine Neg (NEGATIVE); Cocaine Screen, Urine Neg (NEGATIVE); Phencyclidine Screen, Urine Neg (NEGATIVE)
[2025-11-08] MEDS: IRON SUCROSE COMPLEX 110 ML IV SCH (12:15)
--- NOTE | 2025-11-08 12:41 | DVHPN2 ---
Subjective The patient seen and examined at bedside. Still have back pain. Reviewed: Care Plan, H&P, Labs, Medications, Previous Orders, Radiology Changes from previous H/P or p: No Changes Eyes: No Pain, No Vision change, No Conjunctivae inflammation, No Eyelid inflammation, No Other, No Redness ENT: No Ear pain, No Ear discharge, No Nose pain, No Nose discharge, No Nose congestion, No Mouth pain, No Mouth swelling, No Throat pain, No Throat swelling, No Other Cardiovascular: No Chest Pain, No Palpitations, No Orthopnea, No Paroxysmal Noc. Dyspnea, No Edema, No Lt Headedness, No Other Respiratory: No Cough, No Dry, No Shortness of breath, No SOB with excertion, No Wheezing, No Hemoptysis, No Pleuritic Pain, No Sputum, No Other Gastrointestinal: No Nausea, No Vomiting, No Abdominal Pain, No Diarrhea, No Constipation, No Melena, No Hematochezia, No Other Genitourinary: No Dysuria, No Frequency, No Incontinence, No Hematuria, No Retention, No Other Musculoskeletal: No other, No neck pain, No shoulder pain, No arm pain; back pain; No hand pain, No leg pain, No foot pain Skin: No Rash, No Lesions, No Jaundice, No Bruising, No Other Objective Vitals Vital Signs Date Time Temp Pulse Resp B/P (MAP) Pulse Ox O2 Delivery O2 Flow Rate FiO2 11/08/25 12:19 97.8 78 16 106/67 (80) 96 97.8 11/08/25 08:15 Room Air* 0 21 Intake/Output Intake and Output 11/08/25 07:00 Intake Total 2545 ml Balance 2545 ml Intake Oral 545 ml IV Total 2000 ml General Appearance: Alert, Oriented X3, Cooperative, No acute distress HEENT: Atraumatic, PERRLA, EOMI, Mucous membr. moist/pink Neck: Supple Lungs: Clear to auscultation, Normal air movement Cardiovascular: Regular rate, Normal S1, Normal S2, No murmurs, Gallops, Rubs Abdomen: Normal bowel sounds, Soft, No tenderness Neuro: Cranial nerves 3-12 NL Psych/Mental Status: Mental status NL Medications Current Medications Medications Dose Ordered Sig/Dinora Route Start Time Stop Time Status Last Admin Dose Admin Sodium Chloride 1,000 ml @ 120 mls/hr Q8H20M IV 11/08/25 00:00 11/08/25 08:20 120 MLS/HR Acetaminophen/ Hydrocodone Bitart 1 tab Q4HP PRN PO 11/08/25 00:00 11/08/25 10:10 1 TAB Ondansetron HCl 4 mg Q4HP PRN IV 11/08/25 00:00 Docusate Sodium 100 mg BIDPRN PRN PO 11/08/25 00:00 Acetaminophen 650 mg Q6HP PRN PO 11/08/25 00:00 Lidocaine 1 patch Q24H TOP 11/08/25 01:00 11/08/25 01:24 1 PATCH Morphine Sulfate 2 mg Q4HPRN PRN IV 11/08/25 01:45 11/08/25 02:34 2 MG Cyclobenzaprine HCl 5 mg Q8HPRN PRN PO 11/08/25 06:00 Iron Sucrose 110 ml @ 110 mls/hr DAILY@1200 IV 11/08/25 12:00 11/12/25 11:59 11/08/25 12:15 110 MLS/HR Laboratory Results Laboratory Tests 11/08/25 06:04 Chemistry Test 11/07/25 23:09 11/08/25 06:04 Albumin 4.3 g/dL (3.2-4.8) 4.1 g/dL (3.2-4.8) Calcium Level 8.9 mg/dL (8.7-10.4) 9.0 mg/dL (8.7-10.4) Total Protein 7.4 g/dL (5.7-8.2) 7.1 g/dL (5.7-8.2) Coagulation Test 11/07/25 23:09 Prothrombin Time 11.6 sec (9.3-11.8) Prothrombin Time INR 1.11 (0.9-1.15) LFT Test 11/07/25 23:09 11/08/25 06:04 Alanine Aminotransferase (ALT) 32 U/L (7-40) 28 U/L (7-40) Alkaline Phosphatase 82 U/L (46-116) 80 U/L (46-116) Aspartate Amino Transferase (AST) 26 U/L (13-40) 20 U/L (13-40) Total Bilirubin 0.3 mg/dL (0.2-1.0) 0.3 mg/dL (0.2-1.0) HgA1c, TSH Test 11/07/25 23:09 Thyroid Stimulating Hormone (TSH) 1.12 uIU/mL (0.55-4.78) Labs and/or images reviewed: Labs reviewed by me Assessment/Plan Assessment/Plan #acute low back pain: Sudden onset 10 x 10 after heavy lifting, X-ray lumbar spine three views shows Levoscoliosis, CT lumbar spine No acute fracture or traumatic malalignment of the lumbar spine, Continue avoidance of weight lifting for now. Check for vitamin-D calcium. #microcytic anemia: 11.6, no known baseline, denies any active bleeding MCV 70 1.2, with elevated RDW of 15.5 likely iron-deficiency anemia, iron panel, GI blood loss to ruled out, likely due to menstrual blood loss /poor iron intake. #Obesity grade 1: BMI 33.2, weight loss and exercise with lifestyle modification counseling done. Continue current management. will increase flexeril to 10mg PO q 8h prn for muscle spasm Continue pain medication will get physical therarpy to get the patient out of bed and ambulate. Plan discussed with: Patient Date of Service: Nov 08, 2025 Billing Provider: SARAH MORTON MD Common Visit Codes: [id number] INP/OBS CARE(HIGH) SARAH MORTON MD Nov 08, 2025 12:41
[2025-11-09 05:00] VITALS: BP 112/84; PULSE 73; RESP 16; TEMP 97.9; O2SAT 95
[2025-11-09 08:52] VITALS: BP 109/71; PULSE 75; RESP 16; TEMP 97.9; O2SAT 95
[2025-11-09] MEDS: CYCLOBENZAPRINE HCL 10 MG TAB PO PRN (09:17)
--- NOTE | 2025-11-09 10:54 | DVHPN2 ---
Subjective Patient seen and examined at bedside, c/o of lower back pain. Was able to ambulate with walker in the hallway with RN present. DC IVF and IV iron. Cont PT. Possible DC tomorrow. No motor or sensory deficits. Reviewed: Care Plan, H&P, Labs, Medications, Previous Orders, Radiology Changes from previous H/P or p: No Changes Eyes: No Pain, No Vision change, No Conjunctivae inflammation, No Eyelid inflammation, No Other, No Redness ENT: No Ear pain, No Ear discharge, No Nose pain, No Nose discharge, No Nose congestion, No Mouth pain, No Mouth swelling, No Throat pain, No Throat swelling, No Other Cardiovascular: No Chest Pain, No Palpitations, No Orthopnea, No Paroxysmal Noc. Dyspnea, No Edema, No Lt Headedness, No Other Respiratory: No Cough, No Dry, No Shortness of breath, No SOB with excertion, No Wheezing, No Hemoptysis, No Pleuritic Pain, No Sputum, No Other Gastrointestinal: No Nausea, No Vomiting, No Abdominal Pain, No Diarrhea, No Constipation, No Melena, No Hematochezia, No Other Genitourinary: No Dysuria, No Frequency, No Incontinence, No Hematuria, No Retention, No Other Musculoskeletal: No other, No neck pain, No shoulder pain, No arm pain; back pain; No hand pain, No leg pain, No foot pain Skin: No Rash, No Lesions, No Jaundice, No Bruising, No Other Objective Vitals Vital Signs Date Time Temp Pulse Resp B/P (MAP) Pulse Ox O2 Delivery O2 Flow Rate FiO2 11/09/25 08:52 97.9 75 16 109/71 (84) 95 97.9 11/09/25 08:05 Room Air* 0 21 Intake/Output Intake and Output 11/09/25 07:00 Intake Total 1400 ml Balance 1400 ml Intake Oral 1400 ml # Voids 5 General Appearance: Alert, Oriented X3, Cooperative, No acute distress HEENT: Atraumatic, PERRLA, EOMI, Mucous membr. moist/pink Neck: Supple Lungs: Clear to auscultation, Normal air movement Cardiovascular: Regular rate, Normal S1, Normal S2, No murmurs, Gallops, Rubs Abdomen: Normal bowel sounds, Soft, No tenderness Neuro: Cranial nerves 3-12 NL Psych/Mental Status: Mental status NL Medications Current Medications Medications Dose Ordered Sig/Dinora Route Start Time Stop Time Status Last Admin Dose Admin Sodium Chloride 1,000 ml @ 120 mls/hr Q8H20M IV 11/08/25 00:00 11/09/25 09:22 120 MLS/HR Acetaminophen/ Hydrocodone Bitart 1 tab Q4HP PRN PO 11/08/25 00:00 11/08/25 10:10 1 TAB Ondansetron HCl 4 mg Q4HP PRN IV 11/08/25 00:00 Docusate Sodium 100 mg BIDPRN PRN PO 11/08/25 00:00 Acetaminophen 650 mg Q6HP PRN PO 11/08/25 00:00 Lidocaine 1 patch Q24H TOP 11/08/25 01:00 11/09/25 01:19 1 PATCH Morphine Sulfate 2 mg Q4HPRN PRN IV 11/08/25 01:45 11/08/25 18:02 2 MG Iron Sucrose 110 ml @ 110 mls/hr DAILY@1200 IV 11/08/25 12:00 11/12/25 11:59 11/08/25 12:15 110 MLS/HR Cyclobenzaprine HCl 10 mg Q8HPRN PRN PO 11/08/25 13:15 11/09/25 09:17 10 MG Laboratory Results Laboratory Tests 11/08/25 06:04 Assessment/Plan Assessment/Plan # Intractable Back Pain - Pain control - PT # Iron Def Anemia - Outpatient workup with pap smear and possible GI # 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 Plan discussed with: Patient My Orders Orders - JESUS MANUEL WILLIS MD Procedure Category Date Status Time Iron Ivpb PHA 11/09/25 Transmitted 11:00 Oob To Chair LOULOU 11/09/25 Transmitted 10:49 Date of Service: Nov 09, 2025 Billing Provider: JESUS MANUEL WILLIS MD Common Visit Codes: [id number] INP/OBS CARE(HIGH) JESUS MANUEL WILLIS MD Nov 09, 2025 10:54
[2025-11-09] MEDS: IRON SUCROSE COMPLEX 110 ML IV SCH (12:06)
[2025-11-09 12:51] VITALS: BP 106/67; PULSE 75; RESP 16; TEMP 98; O2SAT 97
[2025-11-09 16:27] LABS: Urine Protein, UAD Negative (Negative)
[2025-11-09 17:00] VITALS: BP 106/66; PULSE 93; RESP 17; TEMP 98; O2SAT 97
[2025-11-09 20:00] VITALS: PULSE 82; RESP 18
[2025-11-09 21:00] VITALS: BP 113/75; PULSE 85; RESP 16; TEMP 97.9; O2SAT 98
[2025-11-10 01:00] VITALS: BP 92/54; PULSE 73; RESP 14; TEMP 97.6; O2SAT 94
[2025-11-10 05:00] VITALS: BP 92/54; PULSE 95; RESP 16; TEMP 97.6; O2SAT 95
[2025-11-10 08:43] VITALS: BP 95/65; PULSE 86; RESP 16; TEMP 98.1; O2SAT 97
[2025-11-10] MEDS ORDERED: CEPH250C PO (10:54)
[2025-11-10] MEDS ORDERED: FERR1TAB36 PO (10:54)
[2025-11-10] MEDS ORDERED: CYCL-611 PO (10:54)
--- NOTE | 2025-11-10 10:57 | DVHDS2 ---
Discharge Summary Date of Admission Nov 07, 2025 at 23:52 Date of Discharge: Nov 10, 2025 Admitting Diagnosis Intractable Back Pain Labs/Diagnostic Data: Laboratory Results Test 11/09/25 16:08 11/08/25 10:05 11/08/25 06:04 11/07/25 23:09 Urine Color Light-yellow (Yellow) Urine Clarity Clear (Clear) Urine pH 5.5 (5.0-9.0) Urine Specific [place] 1.017 (1.001-1.035) Urine Protein Negative (Negative) Urine Ketones Negative (Negative) Urine Blood Negative /uL (Negative) Urine Nitrite Negative (Negative) Urine Bilirubin Negative (Negative) Urine Urobilinogen Normal mg/dL (Negative) Urine Leukocyte Esterase 3+ /uL (Negative) Urine RBC 1 /hpf (0 - 4) Urine Microscopic WBC 58 /HPF (0-5) Urine Squamous Epithelial Cells Few /hpf (<5) Urine Bacteria Few /hpf (None Seen) Urine Mucus Few (None Seen) Urine Glucose Normal mg/dL (Normal) Urine Opiates Screen Pos (NEGATIVE) Urine Fentanyl Screen Neg (NEGATIVE) Urine Barbiturates Screen Neg (NEGATIVE) Urine Phencyclidine Screen Neg (NEGATIVE) Urine Amphetamines Screen Neg (NEGATIVE) Urine Benzodiazepines Screen Neg (NEGATIVE) Urine Cocaine Screen Neg (NEGATIVE) Urine Cannabinoids Screen Neg (NEGATIVE) White Blood Count 6.9 10^3/uL (4.4-10.8) Red Blood Count 4.92 10^6/uL (4.0-5.20) Hemoglobin 11.4 g/dL (12.2-16.2) Hematocrit 35.0 % (36.0-46.0) Mean Corpuscular Volume 71.0 fL (80.0-100.0) Mean Corpuscular Hemoglobin 23.1 pg (28.0-32.0) Mean Corpuscular Hemoglobin Concent 32.6 g/dL (32.0-36.0) Red Cell Distribution Width 15.6 % (11.8-14.3) Platelet Count 385 10^3/uL (140-450) Mean Platelet Volume 7.6 fL (6.9-10.8) Neutrophils (%) (Auto) 88.6 % (37.0-80.0) Lymphocytes (%) (Auto) 10.1 % (10.0-50.0) Monocytes (%) (Auto) 1.1 % (0.0-12.0) Eosinophils (%) (Auto) 0.0 % (0.0-7.0) Basophils (%) (Auto) 0.2 % (0.0-2.0) Neutrophils # (Auto) 6.2 10 ^3/uL (1.6-8.6) Lymphocytes # (Auto) 0.7 10 ^3/uL (0.4-5.4) Monocytes # (Auto) 0.1 10 ^3/uL (0-1.3) Eosinophils # (Auto) 0 10 ^3/uL (0-0.8) Basophils # (Auto) 0 10 ^3/uL (0-0.2) Nucleated Red Blood Cells 0.0 % Sodium Level 142 mmol/L (136-145) Potassium Level 4.0 mmol/L (3.5-5.1) Chloride Level 107 mmol/L (98-107) Carbon Dioxide Level 25 mmol/L (20-31) Anion Gap 10 (5-15) Blood Urea Nitrogen 8 mg/dL (9-23) Creatinine 0.81 mg/dL (0.550-1.02) Glomerular Filtration Rate Calc 102 mL/min (>90) BUN/Creatinine Ratio 9.9 (10.0-20.0) Serum Glucose 196 mg/dL (74-106) Calcium Level 9.0 mg/dL (8.7-10.4) Total Bilirubin 0.3 mg/dL (0.2-1.0) Aspartate Amino Transferase (AST) 20 U/L (13-40) Alanine Aminotransferase (ALT) 28 U/L (7-40) Alkaline Phosphatase 80 U/L (46-116) Total Protein 7.1 g/dL (5.7-8.2) Albumin 4.1 g/dL (3.2-4.8) Prothrombin Time 11.6 sec (9.3-11.8) Prothrombin Time INR 1.11 (0.9-1.15) Iron Level 21 ug/dL (50-170) Total Iron Binding Capacity 330 ug/dL (250-425) Percent Iron Saturation 6.4 % (15-50) Ferritin 12.6 ng/mL (10-291) Vitamin D 25-Hydroxy 40.2 ng/mL (30.0-100) Thyroid Stimulating Hormone (TSH) 1.12 uIU/mL (0.55-4.78) Beta HCG, Quantitative 0.9 mIU/mL (1.5-4.2) Other Laboratory Tests 11/08/25 06:04 Brief Hx & Hospital Course: NAREN CHA, A 25-year-old female with no significant past medical history presented to the ED ambulatory with sharp lower back pain after lifting a heavy object at work today, worsened by ambulation and without associated neurological symptoms or gastrointestinal complaints. Patient was treated with pain medications, muscle relaxants. Patient is feeling better. Patient has no neurological deficits. Patient was also found to have a UTI and Iron Def Anemia, needs outpatient workup with Pap Smear and GI workup. Patient will be discharged home to see PCP to be referred for physical therapy. 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 Patient was counseled about treatment plan, medications, possible side effects, patientverbalized understanding. All questions were answered to the best of my ability. This discharge took greater then 30 minutes in planning, reviewing documentation, counseling the patient, and discussing with other team members." ASSESSMENT ASSESSMENT Assessment Date of Service: Nov 10, 2025 Billing Provider: JESUS MANUEL WILLIS MD Common Visit Codes: [id number] DISCH DAY >30min JESUS MANUEL WILLIS MD Nov 10, 2025 10:57
[2025-11-10] MEDS: ACETAMINOPHEN 325 MG TAB PO PRN (12:54)
[2025-11-10 12:55] VITALS: BP 122/78; PULSE 66; RESP 18; TEMP 98.7; O2SAT 98
== END 2025-11-10 13:30 | disposition home or self-care (01) | DRG 690 ==
LOC: ER 17:56 → OVERFLOW 23:52 → CENTRAL 11-08 00:53
PROVIDERS: ADMIT Internal Medicine; ATTEND Internal Medicine
DX: N30.00 Acute cystitis without hematuria (principal); D50.9 Iron deficiency anemia, unspecified; E66.01 Morbid (severe) obesity due to excess calories; Z68.33 Body mass index [BMI] 33.0-33.9, adult; Z79.1 Long term (current) use of non-steroidal anti-inflammatories (NSAID); Z79.899 Other long term (current) drug therapy; X50.0XXA Overexertion from strenuous movement or load, initial encounter; Y93.89 Activity, other specified; Y92.89 Other specified places as the place of occurrence of the external cause; Y99.8 Other external cause status
CPT/HCPCS: 36415; 72100; 72131; 80053; 80307; 81001; 82306; 82728; 83540; 83550; 84443; 84702; 85025; 85610; 97110; 97116; 97163; 97530; G0378; J1100; J1756; J1885